=== PATIENT | female | born 1950 | race Caucasian/White ===

== ENCOUNTER 2020-03-13 07:58 | Outpatient (REF) | payer BC, SELFPAY ==
--- NOTE | 2020-03-13 09:06 | XR_ITS ---
EXAMINATION: KNEE X-RAY CLINICAL INFORMATION: Left knee pain COMPARISON: Previous x-ray July 2012 and March 2012 TECHNIQUE: Standing AP view of both knees and lateral and sunrise view of the left knee FINDINGS: Left: No fracture or dislocation is seen. There are small osteophytes at the lateral femoral tibial joint. There is severe arthritis patellofemoral joint with joint space narrowing and osteophyte formation. There is to be lateral subluxation of the patella on the sunrise view. There is no significant joint effusion. AP view of the right knee demonstrates a longstem knee replacement. XR/XR knee standing BI IMPRESSION: Left: Arthritis at the patellofemoral and lateral femoral tibial joints and lateral subluxation of the patella on the sunrise view. Right knee: Longstem right knee replacement.
--- NOTE | 2020-03-13 09:06 | XR_ITS ---
EXAMINATION: KNEE X-RAY CLINICAL INFORMATION: Left knee pain COMPARISON: Previous x-ray July 2012 and March 2012 TECHNIQUE: Standing AP view of both knees and lateral and sunrise view of the left knee FINDINGS: Left: No fracture or dislocation is seen. There are small osteophytes at the lateral femoral tibial joint. There is severe arthritis patellofemoral joint with joint space narrowing and osteophyte formation. There is to be lateral subluxation of the patella on the sunrise view. There is no significant joint effusion. AP view of the right knee demonstrates a longstem knee replacement. XR/XR knee LT 2V IMPRESSION: Left: Arthritis at the patellofemoral and lateral femoral tibial joints and lateral subluxation of the patella on the sunrise view. Right knee: Longstem right knee replacement.
== END 2020-03-13 07:59 | disposition home or self-care (01) ==
LOC: HO.HOSX 07:58
PROVIDERS: Visit Provider Orthopaedic Surgery
DX: M25.561 Pain in right knee (principal); M25.562 Pain in left knee
CPT/HCPCS: 20610; 73560; 73565; J1040

== ENCOUNTER 2020-10-05 08:29 | Outpatient (REF) | payer BC, SELFPAY ==
--- NOTE | ~2020-10-05 | XR_ITS ---
EXAMINATION: XR SHOULDER, RIGHT CLINICAL INFORMATION: Right shoulder pain. COMPARISON: None TECHNIQUE: Grashey and scapular Y views of the right shoulder. FINDINGS: The bones and soft tissues are normal. No fracture. Glenohumeral and acromioclavicular alignment is anatomic with normal joint space. No abnormal soft tissue calcifications. XR/XR shoulder RT min 2V IMPRESSION: Unremarkable examination.
== END 2020-10-05 08:30 | disposition home or self-care (01) ==
LOC: HO.HOSX 08:29
PROVIDERS: Visit Provider Physician Assistant
DX: M17.32 Unilateral post-traumatic osteoarthritis, left knee (principal); S46.091A Other injury of muscle(s) and tendon(s) of the rotator cuff of right shoulder, initial encounter; X50.0XXA Overexertion from strenuous movement or load, initial encounter; Y93.9 Activity, unspecified; Y92.9 Unspecified place or not applicable; Y99.8 Other external cause status; I48.91 Unspecified atrial fibrillation; I10 Essential (primary) hypertension; Z88.5 Allergy status to narcotic agent
CPT/HCPCS: 73030; J1040

== ENCOUNTER → 2020-11-16 09:37 | Outpatient (BNVA) | payer BC, SELFPAY | PROVIDERS: PCP Nurse Practitioner Family; Visit Provider Physician Assistant ==